=== PATIENT | female | born 1980 | race Caucasian/White ===

== ENCOUNTER 2019-10-20 15:35 | Emergency (ER) | payer OTHER, SELFPAY ==
[2019-10-20 15:45] VITALS: BP 134/78; PULSE 100; RESP 16; TEMP 37; O2SAT 98
--- NOTE | 2019-10-20 16:08 | ED.URI ---
HPI - URI/Sore Throat General Chief Complaint: Upper Respiratory Infection Stated Complaint: sore throat Time Seen by Provider: 10/20/19 15:49 Source: patient and RN notes reviewed Mode of arrival: ambulatory Limitations: no limitations History of Present Illness HPI Narrative: Patient presents today requesting a strep test. States she came in as a precaution. Both of her parents and daughter were diagnosed with strep throat this morning. Patient currently has no symptoms. MD elicited complaint: other (strep test) Related Data Home Medications Medication Instructions Recorded Confirmed levothyroxine [Euthyrox] 88 mcg PO DAILY 10/20/19 10/20/19 Allergies Allergy/AdvReac Type Severity Reaction Status Date / Time Penicillins Allergy Unknown Rash Verified 04/22/19 17:36 Review of Systems Review of Systems: Narrative: CONSTITUTIONAL: Denies body aches, fever, chills, or sweats. EYES: Denies visual changes, redness, or discharge. ENT: Denies rhinorrhea, congestion, sore throat, or otalgia. CARDIOVASCULAR: Denies chest pain, palpitations, or edema. RESPIRATORY: Denies cough or dyspnea. GASTROINTESTINAL: Denies abdominal pain, nausea, vomiting, or diarrhea. GENITOURINARY: Denies dysuria or hematuria. SKIN: Denies rash, itching, or wounds. MUSCULOSKELETAL: Denies back pain, joint pain, or myalgia. NEUROLOGIC: Denies headache, numbness, tingling, or weakness. PSYCH: Denies depression or anxiety. PMFSH Past Medical History Medical History (Updated 10/20/19 @ 16:12 by Sofía Fraser, PRISCILA, ) Acute eczema Hypothyroidism No pertinent family history Surgical History Surgical History (Updated 04/22/19 @ 18:09 by PRISCILA Camara) No significant past surgical history Social History Social History (Updated 04/22/19 @ 18:10 by PRISCILA Camara) Smoking status: Never smoker Alcohol intake: current Comments At time of signature, I have reviewed and agree with nursing past medical, surgical, social and family history unless otherwise noted. Please see nursing chart for further information. There is no relevant family history pertinent to the presenting complaint Exam Narrative: Exam Narrative: GENERAL: Well-appearing, well-nourished, and in no acute distress. HEAD: Normocephalic, atraumatic. EYES: EOMI. No redness or drainage. Conjunctivae normal. ENT: Mucous membranes pink and moist. Nares clear. No rhinorrhea. TMs normal bilaterally. Throat normal. Uvula midline. NECK: Normal AROM. Supple. No lymphadenopathy. CHEST: No respiratory distress. Clear to auscultation. HEART: Regular rate and rhythm. No murmur appreciated. Normal peripheral pulses. EXTREMITIES: Normal range of motion. No edema. SKIN: Warm, dry, no rash. Capillary refill normal. Normal skin turgor. NEURO: No focal deficits. Alert and oriented x3. Gait steady. PSYCH: Normal affect. No signs of depression or anxiety. Course Vital Signs Vital signs: Vital Signs Temperature 98.6 F 10/20/19 15:45 Pulse Rate 100 10/20/19 15:45 Respiratory Rate 16 10/20/19 15:45 Blood Pressure 134/78 10/20/19 15:45 Pulse Oximetry 98 10/20/19 15:45 Temperature 98.6 F 10/20/19 15:45 Pulse Rate 100 10/20/19 15:45 Respiratory Rate 16 10/20/19 15:45 Blood Pressure 134/78 10/20/19 15:45 Pulse Oximetry 98 10/20/19 15:45 Reviewed. Pt has been instructed to follow up with her PCP regarding her elevated blood pressure today. MDM - URI/Sore Throat Differential Diagnosis Differential diagnosis: Likely other (Strep throat) Lab Data Attestation: I reviewed the patient's lab results. Labs: Strep Screen Presumptive Negative *(Reference Range: Negative)* Critical Care Time Critical Care Time Critical Care Time: No Discharge Plan Discharge Clinical Impression: Worried well Patient Disposition: Home, Self-Care Condition: Stable Additional Instructions: Your rapid strep
== END 2019-10-20 16:14 | disposition home or self-care (01) ==
PROVIDERS: Emergency Provider Nurse Practitioner
DX: Z71.1 Person with feared health complaint in whom no diagnosis is made (principal)
CPT/HCPCS: 87081; 87880; 99213; G0463

== ENCOUNTER 2020-01-30 11:55 | Emergency (ER) | payer OTHER, SELFPAY ==
[2020-01-30 12:11] VITALS: BP 134/90; PULSE 110; RESP 18; TEMP 36.3; O2SAT 99
--- NOTE | 2020-01-30 12:34 | ED.URI ---
HPI - URI/Sore Throat General Chief Complaint: Upper Respiratory Infection Stated Complaint: sore throat Time Seen by Provider: 01/30/20 12:19 Source: patient and RN notes reviewed Mode of arrival: ambulatory Limitations: no limitations History of Present Illness HPI Narrative: Patient presents today with intermittent sore throat x2 weeks. States the pain is not increasing or decreasing in severity. Currently rates her pain 2/10. Denies any additional symptoms to include cough, fever, congestion, rhinorrhea, ear pain. She takes Zyrtec and Flonase daily for seasonal allergies. She has not tried any additional medications for her symptoms. States she feels that her throat is swollen. MD elicited complaint: sore throat Related Data Home Medications Medication Instructions Recorded Confirmed levothyroxine [Euthyrox] 88 mcg PO DAILY 10/20/19 01/30/20 cetirizine [Zyrtec] 10 mg PO DAILY 01/30/20 01/30/20 fluticasone propionate [Flonase 2 spray INTRANASAL DAILY 01/30/20 01/30/20 Allergy Relief] Allergies Allergy/AdvReac Type Severity Reaction Status Date / Time Penicillins Allergy Unknown Rash Verified 01/30/20 12:00 Review of Systems Review of Systems: Narrative: CONSTITUTIONAL: Denies body aches, fever, chills, or sweats. EYES: Denies visual changes, redness, or discharge. ENT: Denies rhinorrhea, congestion, or otalgia. + Sore throat CARDIOVASCULAR: Denies chest pain, palpitations, or edema. RESPIRATORY: Denies cough or dyspnea. GASTROINTESTINAL: Denies abdominal pain, nausea, vomiting, or diarrhea. GENITOURINARY: Denies dysuria or hematuria. SKIN: Denies rash, itching, or wounds. MUSCULOSKELETAL: Denies back pain, joint pain, or myalgia. NEUROLOGIC: Denies headache, numbness, tingling, or weakness. PSYCH: Denies depression or anxiety. [facility] Past Medical History Medical History (Updated 01/30/20 @ 12:35 by PRISCILA Young, ) Acute eczema Hypothyroidism No pertinent family history Surgical History Surgical History (Updated 04/22/19 @ 18:09 by PRISCILA Camara) No significant past surgical history Social History Social History (Updated 04/22/19 @ 18:10 by JENN Camara Smoking status: Never smoker Alcohol intake: current Gender identity (if verbalized by the patient): Female Comments At time of signature, I have reviewed and agree with nursing past medical, surgical, social and family history unless otherwise noted. Please see nursing chart for further information. There is no relevant family history pertinent to the presenting complaint Exam Narrative: Exam Narrative: GENERAL: Well-appearing, well-nourished, and in no acute distress. HEAD: Normocephalic, atraumatic. EYES: EOMI. No redness or drainage. Conjunctivae normal. ENT: Mucous membranes pink and moist. Nares clear. No rhinorrhea. TMs normal bilaterally. Throat normal. Uvula midline. NECK: Normal AROM. Supple. No lymphadenopathy. CHEST: No respiratory distress. Clear to auscultation. HEART: Regular rate and rhythm. No murmur appreciated. Normal peripheral pulses. EXTREMITIES: Normal range of motion. No edema. SKIN: Warm, dry, no rash. Capillary refill normal. Normal skin turgor. NEURO: No focal deficits. Alert and oriented x3. Gait steady. PSYCH: Normal affect. No signs of depression or anxiety. Course Vital Signs Vital signs: Vital Signs Temperature 97.3 F L 01/30/20 12:11 Pulse Rate 110 H 01/30/20 12:11 Respiratory Rate 01/30/20 12:11 Blood Pressure 134/90 01/30/20 12:11 Pulse Oximetry 99 01/30/20 12:11 Temperature 97.3 F L 01/30/20 12:11 Pulse Rate 110 H 01/30/20 12:11 Respiratory Rate 18 01/30/20 12:11 Blood Pressure 134/90 01/30/20 12:11 Pulse Oximetry 99 01/30/20 12:11 Reviewed. Pt has been instructed to follow up with her PCP regarding her elevated blood pressure today. MDM - URI/Sore Throat Differential Diagnosis Differential diagnosis: Likely u
== END 2020-01-30 12:39 | disposition home or self-care (01) ==
PROVIDERS: Emergency Provider Nurse Practitioner
DX: J02.9 Acute pharyngitis, unspecified (principal); E03.9 Hypothyroidism, unspecified
CPT/HCPCS: 87081; 87880; 99213; G0463

== ENCOUNTER 2020-03-31 09:50 | Outpatient (CLI) | payer OTHER, SELFPAY ==
--- NOTE | ~2020-03-31 | MMUS_ITS ---
EXAMINATION: MM diagnostic rochelle BI w ho, US breast LT limited HISTORY: Chest wall mass. Patient reportedly underwent unsuccessful trial of antibiotics. TECHNIQUE: Craniocaudal, mediolateral, and mediolateral oblique 3-D tomosynthesis images of the breas ts were performed and synthetic 2-D images were generated. CAD analysis was submitted and interpreted . High resolution limited left breast ultrasound was performed. COMPARISON: None, baseline BREAST PARENCHYMAL COMPOSITION: The breasts are almost entirely fatty. FINDINGS: MAMMOGRAPHIC FINDINGS: There is no evidence of suspicious mass, calcification, or architectural distortion in either breast to suggest malignancy. No mammographic correlate is identified for the reported chest wall mass. ULTRASOUND: There is a 3.1 x 1.4 cm oval, hypoechoic mass with angular margins, posterior acoustic enhancement, a nd internal vascularity in the left anterior chest wall at the site of clinical concern. There appear s to be surrounding edema of the subcutaneous tissues. IMPRESSION: 1. Left chest wall mass which has sonographic features suggestive of an infection however consider ul trasound-guided biopsy given reported failure of antibiotic trial. 2. No mammographic evidence of malignancy. Routine annual screening mammography is recommended. BI-RADS category 4, suspicious findings. Reviewed, dictated and finalized at location A. [employer] SPECIALIST IMPRESSION: 1. Left chest wall mass which has sonographic features suggestive of an infecti on however consider ultrasound-guided biopsy given reported failure of antibiot ic trial. 2. No mammographic evidence of malignancy. Routine annual screening mammography is recommended. BI-RADS category 4, suspicious findings.
== END 2020-03-31 09:51 | disposition home or self-care (01) ==
PROVIDERS: PCP Obstetrics & Gynecology; Visit Provider Obstetrics & Gynecology
DX: R92.8 Other abnormal and inconclusive findings on diagnostic imaging of breast (principal)
CPT/HCPCS: 76642; 77062; 77066; G0279

== ENCOUNTER 2020-04-19 09:56 | Outpatient (CLI) | payer OTHER, SELFPAY ==
--- NOTE | ~2020-04-19 | US_ITS ---
EXAMINATION: US biopsy st neck thorax DATE: 04/19/2020 10:46 INDICATION: Anterior chest wall mass. TECHNIQUE: The procedure including the risks and benefits was discussed with the patient. Risks discu ssed included bleeding and infection. The patient understood the risks and agreed to proceed. The sk in overlying the left parasternal chest was prepped and draped in usual sterile fashion. Anesthetic was administered with 1% lidocaine subcutaneously. An 18 gauge core biopsy needle was advanced under continuous ultrasound observation to the lesion of interest. A single core biopsy specimen was obta ined. On real-time imaging motion was observed around the needle during the course of the biopsy and there was spontaneous expression of a small amount of purulent fluid along the needle tract upon navid mario of the biopsy needle. An 18-gauge needle was then advanced into the lesion and 3 mm of opaque red dish-polo purulent appearing fluid was aspirated. The needle was removed and the entry site was clean ed and dressed. Post procedure ultrasound demonstrated no hemorrhage. FINDINGS: Ultrasound images demonstrate a 2.7 x 1.7 x 2.9 cm hypoechoic lesion with irregular margins . Subsequent images demonstrate first a core biopsy needle and subsequently an aspiration needle adva nced into the lesion. The lesion is largely decompressed at the conclusion of the procedure. IMPRESSION: 1. Successful Ultrasound-guided biopsy and aspiration of a 2.7 x 1.7 x 2.9 cm complex fluid collectio n at the left parasternal chest corresponding to the lesion of concern with appearance of the fluid s uspicious for abscess. The fluid was sent for Gram stain and aerobic and anaerobic cultures as well a s cytology. Reviewed, dictated and finalized at location A. DRESSER IMPRESSION: 1. Successful Ultrasound-guided biopsy and aspiration of a 2.7 x 1.7 x 2.9 cm c omplex fluid collection at the left parasternal chest corresponding to the lesi on of concern with appearance of the fluid suspicious for abscess. The fluid wa s sent for Gram stain and aerobic and anaerobic cultures as well as cytology.
== END 2020-04-19 09:57 | disposition home or self-care (01) ==
PROVIDERS: Visit Provider Surgery
DX: R22.2 Localized swelling, mass and lump, trunk (principal)
CPT/HCPCS: 20206; 76942; 87070; 87075; 87205; 88305

== ENCOUNTER 2021-09-22 09:16 | Emergency (ER) | payer OTHER, SELFPAY ==
[2021-09-22 09:31] VITALS: BP 107/62; PULSE 109; RESP 18; TEMP 37.6; O2SAT 99
--- NOTE | 2021-09-22 09:49 | ED.URI ---
HPI - URI/Sore Throat General Chief Complaint: Upper Respiratory Infection Stated Complaint: chills/sore throat/cough Time Seen by Provider: 09/22/21 09:35 Source: patient Mode of arrival: ambulatory Limitations: no limitations History of Present Illness HPI Narrative: Ms. Machado is a 41-year-old female patient presenting to the clinic today with complaints of chills, sore throat, cough, nasal congestion, nausea, and body aches. She reports that symptoms have been ongoing for approximately 2 days. No known fever. No known exposure to anyone with COVID, flu, or strep. MD elicited complaint: cough, sore throat, rhinorrhea and nasal congestion Related Data Home Medications Medication Instructions Recorded Confirmed levothyroxine [Euthyrox] 88 mcg PO DAILY 10/20/19 04/07/20 cetirizine [Zyrtec] 10 mg PO DAILY 01/30/20 04/07/20 fluticasone propionate [Flonase 2 spray INTRANASAL DAILY 01/30/20 04/07/20 Allergy Relief] Allergies Allergy/AdvReac Type Severity Reaction Status Date / Time Penicillins Allergy Unknown Rash Verified 09/22/21 10:00 Review of Systems Review of Systems: Pertinent positives per HPI. Patient denies any fever, rash, headache, visual changes, dizziness, shortness of breath, chest pain, palpitations,vomiting, diarrhea, constipation, abdominal pain, or any urinary issues. 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 There is no relevant family history pertinent to the patient complaint. Exam Narrative: General: Well-developed, obese, in no apparent distress Head: Normocephalic, atraumatic Eyes: Pupils equally round and reactive to light bilaterally, EOM intact, sclera and conjunctive clear, no discharge, lids normal Ears: TMs intact, dull, red, ear canals clear, no drainage, grossly hearing normal. Nose: Nares patent, clear nasal discharge, moderate inflammation, no sinus tenderness. Mouth: Oral pharynx without lesions or masses, good dentition, MMM. Tonsillar enlargement with white exudate, oropharynx red Neck: Supple, trachea midline, positive enlargement of anterior cervical nodes, no thyroid masses or goiter palpable. Cardio: Regular rate and rhythm, s1 and s2 normal, no murmur appreciated. Resp: Clear to auscultation bilaterally, no rhonchi, rales, wheezing or rubs Course Course Emergency Course: Portions of this record may have been created with voice recognition software. Level of Care: Express Care Visit Vital Signs Vital signs: Vital Signs Temperature 37.6 C 09/22/21 09:31 Pulse Rate 109 H 09/22/21 09:31 Respiratory Rate 18 09/22/21 09:31 Blood Pressure 107/62 09/22/21 09:31 Pulse Oximetry 99 09/22/21 09:31 Temperature 37.6 C 09/22/21 09:31 Pulse Rate 109 H 09/22/21 09:31 Respiratory Rate 18 09/22/21 09:31 Blood Pressure 107/62 09/22/21 09:31 Pulse Oximetry 99 09/22/21 09:31 Vital signs reviewed MDM - URI/Sore Throat MDM Narrative Medical decision making narrative: At the time of assessment patient is resting comfortably on the exam table. Reports chills, nausea, sore throat, cough, and nasal congestion. Strep, influenza, and CO
== END 2021-09-22 10:24 | disposition home or self-care (01) ==
PROVIDERS: Emergency Provider Nurse Practitioner Family
DX: B34.9 Viral infection, unspecified (principal); Z20.822 Contact with and (suspected) exposure to COVID-19; F17.210 Nicotine dependence, cigarettes, uncomplicated; E03.9 Hypothyroidism, unspecified
CPT/HCPCS: 87081; 87426; 87804; 87880; 99213; C9803; G0463

== ENCOUNTER 2021-09-24 08:35 | Emergency (ER) | payer OTHER, SELFPAY ==
[2021-09-24 08:44] VITALS: BP 141/83; PULSE 113; RESP 18; TEMP 37.4; O2SAT 99
--- NOTE | 2021-09-24 08:50 | ED.EYEPROB ---
HPI - Eye Problem General Chief complaint: Eye Problems Stated complaint: Swollen Eyes Time Seen by Provider: 09/24/21 08:50 Source: patient Mode of arrival: ambulatory Limitations: no limitations History of Present Illness HPI Narrative: 41-year-old female presents with complaint of continued sore throat. Was seen 4 to 5 days ago at [facility] and had a negative strep test. Was told to take [id number] pain medications and salt water gargles. Has had no relief of sore throat and feels that swelling is worse today. She also reports 2 days of redness to eyes with yellow drainage. Afebrile. Positive fatigue. All systems reviewed and negative except as noted above. Related Data Home Medications Medication Instructions Recorded Confirmed levothyroxine [Euthyrox] 88 mcg PO DAILY 10/20/19 09/24/21 Allergies Allergy/AdvReac Type Severity Reaction Status Date / Time Penicillins Allergy Unknown Rash Verified 09/24/21 08:42 Review of Systems Review of Systems: CONSTITUTIONAL: Denies fever, chills, or sweats. EYES: Denies visual changes. Reports redness and discharge. ENT: Denies rhinorrhea, congestion. Reports sore throat. Denies otalgia. CARDIOVASCULAR: Denies chest pain, palpitations, or edema. RESPIRATORY: Denies cough or dyspnea. GASTROINTESTINAL: Denies abdominal pain, nausea, vomiting, or diarrhea. GENITOURINARY: Denies dysuria or hematuria. SKIN: Denies rash or itching. MUSCULOSKELETAL: Denies back pain, joint pain, or myalgia. NEUROLOGIC: Denies headache, numbness, or weakness. PSYCHIATRIC: Denies anxiety or depression. All other systems reviewed are negative, except as documented in HPI. 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 There is no relevant family history pertinent to the presenting complaint. Exam Narrative: GENERAL: This is a well-nourished, well-developed patient, in no apparent distress. HEAD: normocephalic, atraumatic. EYES: PERRL. Sclera and conjunctive erythematous. Yellow ropey drainage noted to both eyes. Vision is grossly intact. EARS: External ears normal, auditory canals clear and without drainage, TMs normal without perforation. Hearing grossly intact. NOSE: External nose normal with no obvious nasal discharge, nares without redness, no rhinorrhea. THROAT: Mucous membranes moist, erythema to posterior pharynx. Tonsils 2+ bilaterally with exudates. NECK: Neck supple, tender with cervical lymphadenopathy, no masses or thyromegaly. CARDIOVASCULAR: Regular rate and rhythm without murmurs, gallops, or rubs. RESPIRATORY: Clear to auscultation. Breath sounds equal bilaterally. No wheezes, rales, or rhonchi. SKIN: warm, Dry, intact with no suspicious lesions or rash, good texture and turgor. NEURO: awake, alert, and oriented to person, place and time. There were no obvious focal neurologic abnormalities. EXTREMITIES: Normal range of motion to all extremities. Course Course Level of Care: Express Care Visit Vital Signs Vital signs: Vital Signs Temperature 37.4 C 09/24/21 08:44 Pulse Rate 113 H 09/24/21 08:44 Respiratory Rate 18 09/24/21 08:44 Blood Pressure 141/83 H 09/24/21 08:44
== END 2021-09-24 09:03 | disposition home or self-care (01) ==
PROVIDERS: Emergency Provider Nurse Practitioner Family
DX: J02.9 Acute pharyngitis, unspecified (principal); H10.33 Unspecified acute conjunctivitis, bilateral; J30.2 Other seasonal allergic rhinitis; F17.210 Nicotine dependence, cigarettes, uncomplicated; E03.9 Hypothyroidism, unspecified
CPT/HCPCS: 99213; G0463